=== PATIENT | male | born 1995 | race Hispanic/Latino ===

== ENCOUNTER 2019-09-11 09:37 | Emergency (ER) | payer SELFPAY ==
[2019-09-11] MEDS ORDERED: CLINDAMYCIN HCL 150 MG CAP ONE (11:07)
[2019-09-11] MEDS ORDERED: KETOROLAC TROMETHAMINE 60 MG/2 ML VIAL ONE (11:14)
== END 2019-09-11 14:20 | disposition home or self-care (01) ==
LOC: EDH 09:37
DX: H65.05 Acute serous otitis media, recurrent, left ear (principal); Z88.1 Allergy status to other antibiotic agents
CPT/HCPCS: 70480; 82948; 96372; 99285; J1885

== ENCOUNTER 2022-03-18 11:51 | Emergency (ER) | payer OTHER ==
[~2022-03-18] VITALS: Ht 190.5 cm; Wt 161.0 kg
[2022-03-18] MEDS ORDERED: NAPR500T6 PO (13:10)
[2022-03-18] MEDS ORDERED: KETOROLAC 15MG/ML VIAL (15MG/ML) IV ONE (13:30)
[2022-03-18] MEDS ORDERED: KETOROLAC 15MG/ML VIAL (15MG/ML) IM ONE (14:00)
[2022-03-18 14:09] VITALS: BP 138/80
== END 2022-03-18 16:39 | disposition home or self-care (01) ==
LOC: EDH 11:51
DX: M17.11 Unilateral primary osteoarthritis, right knee (principal); Z90.49 Acquired absence of other specified parts of digestive tract; Z88.1 Allergy status to other antibiotic agents
CPT/HCPCS: 99283; 73562; 96372; J1885

== ENCOUNTER 2025-06-16 18:25 | Emergency (ER) | payer SELFPAY ==
[~2025-06-16] VITALS: Ht 190.5 cm; Wt 145.1 kg
[~2025-06-16 18:25] MED LIST: CLIN-141 PO; DICL35CA3 PO; NAPR-1506 PO
--- NOTE | 2025-06-16 18:34 | EKG ---
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
--- NOTE | 2025-06-16 18:41 | ERN ---
ED Note History of Present Illness Stated Complaint: DIZZY, N/V/D Chief Complaint: Dizzy/Light Headed Time Seen by MD: 18:27 Time Seen by Midlevel: 18:27 Dictation: The patient is a 29-year-old male with a history of cholecystectomy who presents to the emergency department with complaints of nausea, nonbloody vomiting, nonbloody diarrhea, upper abdominal pain, dizziness onset this morning around 6:00 a.m.. Patient denies any fevers. Denies any alcohol use, denies any drug use, any falls or recent trauma. Allergies: Coded Allergies: cephalexin (Unverified Allergy, Unknown, 06/30/22) Home Meds Active Scripts Dicyclomine HCl (Bentyl) 20 Mg Tab, 1 TAB PO TID for irritable bowel symptoms for 10 Days, #30 TAB 0 Refills Prov:PATTI CHU [facility] 06/16/25 Pantoprazole Sodium (Protonix) 40 Mg Ectab, 1 TAB PO DAILY for 30 Days, #30 TAB 0 Refills Prov:PATTI CHU [facility] 06/16/25 Metformin HCl (Metformin HCl) 500 Mg Tablet, 1 TAB PO BID for 30 Days, #60 TAB 0 Refills Do not start this medication until 06/20/25 Prov:PATTI CHU [facility] 06/16/25 Ondansetron (Ondansetron Odt) 4 Mg Tab.rapdis, 4 MG PO Q6HPRN PRN for nausea, #16 TAB 0 Refills Prov:PATTI CHU [facility] 06/16/25 Diclofenac Submicronized (Diclofenac) 35 Mg Capsule, 35 MG PO TID for 10 Days, #30 CAP Prov:MARLENE SCHAEFER MD 07/01/22 Clindamycin HCl (Clindamycin HCl) 300 Mg Capsule, 1 CAP PO QID for 10 Days, #40 CAP 0 Refills Prov:MARLENE SCHAEFER MD 07/01/22 Naproxen (Naproxen) 500 Mg Tablet.dr, 500 MG PO BIDPC, #15 TAB Prov:ESME DONNELLY [facility] 03/18/22 Past Medical History Past Medical History: No Pertinent History Surgical History: Cholecystectomy Social History: Negative, Lives with family RN Note Reviewed/Agreed w/PFSH: Yes Review of System Dictation Constitutional: Negative for fever,chills, and weight loss Eyes: Negative for injury, pain,redness, and discharge ENT: Negative for injury,pain or swelling Cardiovascular: Negative for chest pain, palpitations, and edema Respiratory: Negative for shortness of breath, cough, and wheezing, Abdomen/GI: Negative for constipation positive for abdominal pain, nausea, vomiting, diarrhea. Back: Negative for injury and pain : Negative for injury, bleeding and discharge MS/Extremity: Negative for injury and deformity Skin: Negative for rash, and discoloration Neuro: Negative for headache, weakness, numbness, tingling, and seizure positive for dizziness Psych: Negative for suicide ideation, homicidal ideation, and hallucinations Initial Vital Sign VS Vital Signs Date Time Temp Pulse Resp B/P (MAP) Pulse Ox O2 Delivery O2 Flow Rate FiO2 06/16/25 18:26 98.4 133 22 122/78 98 Room Air 0 06/16/25 20:16 21 Physical Exam Dictation Vital Signs reviewed General Appearance: Alert, oriented x 3, no acute distress, well developed, nourished. Head and Face: non-traumatic. Eyes: PERRL, pink conjunctivas, eyelid no trauma, anterior chamber with arcus senilis. Ears: Pinnas intact and no signs of trauma or erythema ear canals clear and no discharge TM no erythema Nose: No discharge, no bleeding. Oropharynx: Mouth normal, tongue pink. pharynx clear,no erythema, tonsils no exudates, no abscesses noted, mucous membrane moist Neck: Supple, non-tender, no thyromegaly, no masses, no JVD, no bruits Breast:Deferred Chest:No tenderness, no crepitus, no paradoxical movement, no retractions Lungs:Clear, well-ventilated, symmetric, no rales, no wheezing, no rhonchi, no stridor, good breath sounds bilaterally Heart: Regular rate, regular rhythm, no murmur, no gallops Vascular: no peripheral edema, Abdomen: Soft, positive bowel sounds, nondistended, no guarding, Epigastric tenderness, no rebound, no masses no hepatomegaly, no splenomegaly, no Amos's sign, no hernias. Rectal: Deferred Genital: Deferred Neurological: Normal speech, motor function intact, sensory function intact , upper extremities equal in strength, lower extremities equal in strength, no facial droop, no slurred speech Musculoskeletal: Neck nontender, full range of motion, back nontender, full range of motion, Extremities: nontender, full range of motion Skin: Color pink, dry, no turgor, no rash, no lacerations, no abrasions, no contusions. Lymphatic: Deferred Results (Laboratory/Radiology) Laboratory/Radiology Laboratory Tests Test 06/16/25 18:51 06/16/25 21:37 06/16/25 22:09 White Blood Count 12.9 K/uL (4.8-10.8) H Red Blood Count 5.96 MIL/uL (4.50-6.20) Hemoglobin 17.7 g/dL (14.0-18.0) Hematocrit 49.9 % (42-54) Mean Corpuscular Volume 83.7 fL (79-99) Mean Corpuscular Hemoglobin 29.7 pg (27.0-33.0) Mean Corpuscular Hemoglobin Concent 35.5 g/dL (32.0-36.0) Red Cell Distribution Width 12.4 % (11.0-15.5) Platelet Count 306 K/uL (130-400) Mean Platelet Volume 8.9 fL (7.5-10.5) Immature Granulocyte % (Auto) 0.5 % (0-1) Neutrophils (%) (Auto) 92.1 % (40.0-77.0) H Lymphocytes (%) (Auto) 2.5 % (21.0-51.0) L Monocytes (%) (Auto) 4.6 % (3.0-13.0) Eosinophils (%) (Auto) 0.1 % (0.0-8.0) Basophils (%) (Auto) 0.2 % (0.0-5.0) Neutrophils # (Auto) 11.8 K/uL (1.8-7.7) H Lymphocytes # (Auto) 0.3 K/uL (1.0-4.8) L Monocytes # (Auto) 0.6 K/uL (0.1-1.0) Eosinophils # (Auto) 0.01 K/uL (0.00-0.70) Basophils # (Auto) 0.03 K/uL (0.00-0.20) Absolute Immature Granulocyte (auto 0.07 K/uL (0-1) Nucleated Red Blood Cells 0.0 % (0.0-0.19) White Cell Morphology Comment See comments Sodium Level 135 mmol/L (136-145) L Potassium Level 4.4 mmol/L (3.5-5.1) Chloride Level 95 mmol/L (101-111) L Carbon Dioxide Level 25 mmol/L (21-32) Blood Urea Nitrogen 19 mg/dL (7-18) H Creatinine 1.2 mg/dL (0.5-1.3) Glomerular Filtration Rate Calc 83 mL/min (>90) Random Glucose 323 mg/dL (70-105) H Lactic Acid Level 4.1 mmol/L (0.8-2.5) H 2.9 mmol/L (0.8-2.5) H Total Calcium 8.9 mg/dL (8.5-10.1) Magnesium Level 1.50 mg/dL (1.80-2.40) L Total Bilirubin 0.8 mg/dL (0.2-1.0) Direct Bilirubin 0.1 mg/dL (0.0-0.3) Aspartate Amino Transf (AST/SGOT) 20 U/L (10-37) Alanine Aminotransferase (ALT/SGPT) 53 U/L (12-78) Alkaline Phosphatase 80 U/L (50-136) Total Creatine Kinase 57 U/L (21-232) Troponin I High Sensitivity 4 ng/L (4-75) Total Protein 8.6 g/dL (6.0-8.3) H Albumin 4.5 g/dL (3.5-5.0) Lipase 26 U/L (16-77) Urine Color LIGHT-YELLOW (YELLOW) Urine Appearance CLEAR (CLEAR) Urine pH 6.0 (5.0-8.0) Urine Specific [place] OVER (1.001-1.031) Urine Protein 50 mg/dL (NEGATIVE) H Urine Glucose (UA) >=1000 mg/dL (NEGATIVE) H Urine Ketones NEGATIVE mg/dL (NEGATIVE) Urine Occult Blood NEGATIVE (NEGATIVE) Urine Nitrate NEGATIVE (NEGATIVE) Urine Bilirubin NEGATIVE mg/dL (NEGATIVE) Urine Urobilinogen 0.2 mg/dL (0.2-1.0) Urine Leukocyte Esterase NEGATIVE Mani/uL Urine RBC 2-5 /HPF (0-1) H Urine WBC 2-5 /HPF (0-1) H Urine Squamous Epithelial Cells FEW /HPF (0-2) Urine Bacteria None /HPF (None Seen) Urine Opiates Screen NEGATIVE (NEGATIVE) Urine Barbiturates Screen NEGATIVE (NEGATIVE) Urine Phencyclidine Screen NEGATIVE (NEGATIVE) Urine Amphetamines Screen NEGATIVE (NEGATIVE) Urine Benzodiazepines Screen NEGATIVE (NEGATIVE) Urine Cocaine Screen NEGATIVE (NEGATIVE) Urine Marijuana (THC) Screen NEGATIVE (NEGATIVE) REASON: Abdominal Pain ORDERING PHYSICIAN: PATTI CHU FOOD SPECIALIST PROCEDURE: ABD PEL W - CT ABDOMEN/PELVIS W/CONTRAST EXAM: CT Abdomen and Pelvis with IV contrast CLINICAL HISTORY: Patient presents with abdominal pain. TECHNIQUE: Axial computed tomography images of the abdomen and pelvis with intravenous contrast. CONTRAST: Administered intravenously. COMPARISON: None provided. FINDINGS: LUNG BASES: The lung bases are clear. No pleural effusions. LIVER: The liver is enlarged measuring 25.5 cm in craniocaudal dimension with diffuse hepatic steatosis. GALLBLADDER AND BILE DUCTS: The gallbladder is surgically absent. No biliary ductal dilatation. PANCREAS: Unremarkable. SPLEEN: Unremarkable. ADRENAL GLANDS: Unremarkable. KIDNEYS, URETERS, AND BLADDER: The kidneys are within normal limits. No hydronephrosis or hydroureter. The urinary bladder is incompletely distended, limiting evaluation for possible wall thickening. In the appropriate clinical setting, mild cystitis cannot be excluded. STOMACH AND BOWEL: Nondilated fluid-filled small and large bowel loops without any zone of transition; this could be a nonspecific finding, or may be present in the clinical setting of acute enterocolitis. No obstruction. APPENDIX: No evidence of acute appendicitis. PERITONEUM: No free fluid or free air. LYMPH NODES: No lymphadenopathy. REPRODUCTIVE: Unremarkable as visualized. VASCULATURE: No abdominal aortic aneurysm. BONES: No acute or aggressive osseous abnormality. IMPRESSION: Nondilated fluid-filled small and large bowel loops without any zone of transition; this could be a nonspecific finding, or may be present in the clinical setting of acute enterocolitis. No obstruction. Hepatomegaly with diffuse hepatic steatosis. Status post cholecystectomy. Urinary bladder incompletely distended; in the appropriate clinical setting, mild cystitis cannot be excluded. /[place] REASON: dizzy ORDERING PHYSICIAN: PATTI CHU FOOD SPECIALIST PROCEDURE: CXR1VW - CHEST 1VW EXAM: CR Chest, 1 View. CLINICAL HISTORY: dizzy COMPARISON: None provided. FINDINGS: LUNGS: There is no mass, infiltrate, or acute pulmonary abnormality. PLEURAL SPACES: No evidence of pleural effusion or pneumothorax. MEDIASTINUM: The cardiomediastinal silhouette is within normal limits. BONES: No aggressive appearing osseous lesion seen. IMPRESSION: No acute cardiopulmonary pathology is evident. /[facility] Reviewed?: Yes EKG: (+) rhythm (Sinus tachycardia) EKG Comment: Date:06/16/2025 Time:1826 Ventricular rate:133 CO interval:128 QRS duration: 83 QT/QTc:311/463 EKG interpretation: Sinus tachycardia Reviewed by ED Attending no STEMI ED Course ED Course Orders Procedure Category Date Status Time 12 Lead Ekg Tracing- EKG 06/16/25 Complete Technical 18:29 Cbc With Differential LAB 06/16/25 Complete 18:33 Troponin I High LAB 06/16/25 Complete Sensitivity 18:33 Urinalysis Profile LAB 06/16/25 Complete 18:33 Ondansetron 4mg Inj PHA 06/16/25 Complete (Zofran 4mg Inj) 19:00 Pantoprazole 40mg Inj PHA 06/16/25 Complete (Protonix 40mg Inj 19:00 Creatine Kinase, Total LAB 06/16/25 Complete 18:33 Chest 1vw RAD 06/16/25 Resulted 18:33 Lipase LAB 06/16/25 Complete 18:33 Basic Metabolic Panel LAB 06/16/25 Complete 18:33 Hepatic Function Panel LAB 06/16/25 Complete 18:33 Drug Screen Urine LAB 06/16/25 Complete 18:33 Blood Cult DWAYNE 06/16/25 In Process 18:33 0.9%Nacl 1000ml (Ns PHA 06/16/25 Complete 1000ml) 19:00 Lactic Acid LAB 06/16/25 Complete 18:33 Magnesium LAB 06/16/25 Complete 18:38 Magnesium Oxide PHA 06/16/25 Complete (Mag-Ox) 19:30 Ct Abdomen/Pelvis CT 06/16/25 Resulted W/Contrast 19:26 Iohexol (Omnipaque) PHA 06/16/25 Complete 20:07 Lactic Acid (Removed) LAB 06/16/25 Complete 22:03 Dicyclomine Hcl PHA 06/16/25 Complete (Bentyl 20mg Inj) 22:30 Current Medications Medications (Trade) Dose Ordered Sig/[place] Route PRN Reason Start Time Stop Time Status Last Admin Dose Admin Dicyclomine HCl (Bentyl 20mg Inj) 20 mg ONCE ONCE IM 06/16/25 22:30 06/16/25 22:31 DC 06/16/25 22:29 Iohexol (Omnipaque) 75 ml STK-MED ONCE IV 06/16/25 20:07 06/16/25 20:07 DC Magnesium Oxide (Mag-Ox) 400 mg ONCE ONCE PO 06/16/25 19:30 06/16/25 19:31 DC 06/16/25 20:05 Ondansetron HCl (zoFRAN 4MG INJ) 4 mg ONCE ONCE IVP 06/16/25 19:00 06/16/25 19:01 DC 06/16/25 20:05 Pantoprazole Sodium (PROTonix 40MG INJ) 40 mg ONCE ONCE IVP 06/16/25 19:00 06/16/25 19:01 DC 06/16/25 20:02 Sodium Chloride 2,535 ml @ 845 mls/hr ONCE ONCE IV 06/16/25 19:00 06/16/25 21:59 DC 06/16/25 20:05 Vital Signs Date Time Temp Pulse Resp B/P (MAP) Pulse Ox O2 Delivery O2 Flow Rate FiO2 06/16/25 22:57 98.8 106 16 113/51 98 Room Air* 0 21 06/16/25 22:23 98.8 101 18 116/67 98 Room Air* 0 21 06/16/25 20:16 98.8 124 18 117/68 96 Room Air* 0 21 06/16/25 18:26 98.4 133 22 122/78 98 Room Air 0 Medical Decision Making MDM The patient is a 29-year-old male with a history of cholecystectomy who presents to the emergency department with complaints of nausea, nonbloody vomiting, nonbloody diarrhea, upper abdominal pain, dizziness onset this morning around 6:00 a.m.. Patient denies any fevers. Denies any alcohol use, denies any drug use, any falls or recent trauma. CBC showed mild leukocytosis, no anemia, chemistry showed hyperglycemia, negative troponin, hypomagnesemia,negative lipase elevated lactic acid, trending down after fluids. urinalysis showed no leukocyte esterase no nitrates. Ct showed entrocolitis, chest xray unremarkable. patients hear rate improved after fluids. On physical exam patient continues neurologically intact, non toxic appearance, stable vital signs. Patient will be discharge to follow up with PCP>. Differential diagnosis: Gastroenteritis, gastritis, sepsis, dehydration, uti, electrolyte imbalance Need for hospitalization: Patient does not meet criteria for hospitalization. There are no social concerns with this patient. DX & DISP Disposition: Discharge Departure Impression: Primary Impression: Gastroenteritis Additional Impressions: Hyperglycemia, Dehydration, Nausea and vomiting Condition: Stable Scripts Dicyclomine HCl (Bentyl) 20 Mg Tab 1 TAB PO TID for irritable bowel symptoms for 10 Days, #30 TAB 0 Refills Prov: PATTI CHU [facility] 06/16/25 Pantoprazole Sodium (Protonix) 40 Mg Ectab 1 TAB PO DAILY for 30 Days, #30 TAB 0 Refills Prov: PATTI CHU FOOD SPECIALIST 06/16/25 Metformin HCl (Metformin HCl) 500 Mg Tablet 1 TAB PO BID for 30 Days, #60 TAB 0 Refills Do not start this medication until 06/20/25 Prov: PATTI CHU FOOD SPECIALIST 06/16/25 Ondansetron (Ondansetron Odt) 4 Mg Tab.rapdis 4 MG PO Q6HPRN PRN for nausea, #16 TAB 0 Refills Prov: PATTI CHUP 06/16/25 Additional Instructions: You had some dehydration but we gave you fluids in the ER. Do however continue hydrating at home. Your labs also showed you have diabetes. You will be presc ribe Metformin which is a diabetes medication to help lower your blood sugar. You cannot however start metformin until the because you received contrast in the ER.Your magnesium, an electrolyte was also low but we replaced it. Please follow up with your PCP in 1-2 days. If anything worsens please return to ER. FOLLOW-UP WITH PRIMARY CARE PROVIDER IN 1 TO 2 DAYS. TAKE MEDICATIONS DIRECTED HERE IN THE EMERGENCY ROOM. OKAY TO CONTINUE HOME MEDICATIONS UNLESS OTHERWISE DISCUSSED DURING YOUR VISIT IN THE EMERGENCY ROOM TODAY. RETURN TO YOUR NEAREST EMERGENCY ROOM IF SYMPTOMS WORSEN OR IF THERE IS NO IMPROVEMENT. CALL 911 IF YOU NEED IMMEDIATE ASSISTANCE. TAKE TYLENOL [id number] NEEDED AND IF NO CONTRAINDICATIONS ARE PRESENT. INCREASE ORAL HYDRATION. A WOUND CULTURE OR URINE CULTURE WAS ORDERED HERE IN THE EMERGENCY ROOM DEPARTMENT PLEASE FOLLOW-UP WITH PRIMARY CARE PROVIDER AND ADVISE THEM TO GET REPEAT PORTS FROM OUR FACILITY. IF YOU HAD ANY MIGUELITO WRAP/SPLINTS THAT WERE APPLIED HERE, PLEASE DO NOT REMOVE THEM UNTIL YOU SEE YOUR PRIMARY CARE OR SPECIALTY. Referrals: SELF,REFERRAL (PCP) Time of Disposition: 22:51 I have reviewed the case, and I agree with, Diagnosis and Plan I performed a substantive portion of the visit. I have reviewed and personally made and approve the management plan that is documented in the notes by myself with REYMUNDO/resident. I acknowledged full responsibility for the patient's management plan. PATTI CHU Jun 16, 2025 18:41 LUIS MANUEL YANCEY DO Jun 17, 2025 01:02
[2025-06-16 18:59] LABS: IMMATURE GRANULOCYTE ABSOLUTE 0.07 K/uL (0-1); NUCLEATED RED BLOOD CELLS 0.0 % (0.0-0.19); PLATELET COUNT (AUTO) 306 K/uL (130-400); RED BLOOD CELL COUNT(AUTO) 5.96 MIL/uL (4.50-6.20); RED CELL DISTRIBUTION WIDTH 12.4 % (11.0-15.5); WHITE BLOOD COUNT (AUTO) 12.9 K/uL (4.8-10.8)
[2025-06-16 19:14] LABS: CREATININE 1.2 mg/dL (0.5-1.3); GLOMERULAR FILTR. RATE CALC 83.0 mL/min (>90); GLUCOSE,RANDOM 323.0 mg/dL (70-105); SODIUM SERUM 135.0 mmol/L (136-145); UREA NITROGEN, BLOOD 19.0 mg/dL (7-18)
[2025-06-16 19:18] LABS: ASPARTATE AMINOTRANSFERASE 20.0 U/L (10-37); CREATINE KINASE, TOTAL 57.0 U/L (21-232); TOTAL PROTEIN, SERUM 8.6 g/dL (6.0-8.3)
[2025-06-16] MEDS: [UNRECOGNIZED DRUG - OTHER] IV ONE (20:05)
[2025-06-16] MEDS: MAGNESIUM OXIDE 400 MG TABLET PO ONE (20:05)
[2025-06-16] MEDS ORDERED: IOHEXOL-350 75 ML VIAL IV ONE (20:07)
--- NOTE | 2025-06-16 20:10 | HMCIMG ---
EXAM: CR Chest, 1 View. CLINICAL HISTORY: dizzy COMPARISON: None provided. FINDINGS: LUNGS: There is no mass, infiltrate, or acute pulmonary abnormality. PLEURAL SPACES: No evidence of pleural effusion or pneumothorax. MEDIASTINUM: The cardiomediastinal silhouette is within normal limits. BONES: No aggressive appearing osseous lesion seen. IMPRESSION: No acute cardiopulmonary pathology is evident. /[place]
--- NOTE | 2025-06-16 21:48 | HMCIMG ---
EXAM: CT Abdomen and Pelvis with IV contrast CLINICAL HISTORY: Patient presents with abdominal pain. TECHNIQUE: Axial computed tomography images of the abdomen and pelvis with intravenous contrast. CONTRAST: Administered intravenously. COMPARISON: None provided. FINDINGS: LUNG BASES: The lung bases are clear. No pleural effusions. LIVER: The liver is enlarged measuring 25.5 cm in craniocaudal dimension with diffuse hepatic steatosis. GALLBLADDER AND BILE DUCTS: The gallbladder is surgically absent. No biliary ductal dilatation. PANCREAS: Unremarkable. SPLEEN: Unremarkable. ADRENAL GLANDS: Unremarkable. KIDNEYS, URETERS, AND BLADDER: The kidneys are within normal limits. No hydronephrosis or hydroureter. The urinary bladder is incompletely distended, limiting evaluation for possible wall thickening. In the appropriate clinical setting, mild cystitis cannot be excluded. STOMACH AND BOWEL: Nondilated fluid-filled small and large bowel loops without any zone of transition; this could be a nonspecific finding, or may be present in the clinical setting of acute enterocolitis. No obstruction. APPENDIX: No evidence of acute appendicitis. PERITONEUM: No free fluid or free air. LYMPH NODES: No lymphadenopathy. REPRODUCTIVE: Unremarkable as visualized. VASCULATURE: No abdominal aortic aneurysm. BONES: No acute or aggressive osseous abnormality. IMPRESSION: Nondilated fluid-filled small and large bowel loops without any zone of transition; this could be a nonspecific finding, or may be present in the clinical setting of acute enterocolitis. No obstruction. Hepatomegaly with diffuse hepatic steatosis. Status post cholecystectomy. Urinary bladder incompletely distended; in the appropriate clinical setting, mild cystitis cannot be excluded. /[place]
[2025-06-16 21:58] LABS: AMPHET/METH SCREEN,URINE NEGATIVE (NEGATIVE); BARBITURATE SCREEN, URINE NEGATIVE (NEGATIVE); CANNABINOID SCREEN,URINE NEGATIVE (NEGATIVE); COCAINE SCREEN,URINE NEGATIVE (NEGATIVE)
[2025-06-16 22:00] LABS: APPEARANCE,URINE CLEAR (CLEAR); GLUCOSE, URINE (UA) >=1000 mg/dL (NEGATIVE); LEUKOCYTE ESTERASE ,URINE NEGATIVE Leu/uL (NEGATIVE); NITRATE,URINE NEGATIVE (NEGATIVE); OCCULT BLOOD,URINE NEGATIVE (NEGATIVE)
[2025-06-16 22:03] LABS: ADD UA MICROSCOPIC YES
[2025-06-16 22:09] LABS: SQUAMOUS EPITHELIAL CELL,UR FEW /HPF (0-2)
[2025-06-16] MEDS: DICYCLOMINE 20MG (10MG/ML) AMP IM ONE (22:29)
[2025-06-16] MEDS ORDERED: DICY20TA2 PO (22:49)
[2025-06-16] MEDS ORDERED: ONDA-243 PO (22:49)
[2025-06-16] MEDS ORDERED: PANT40TA55 PO (22:49)
[2025-06-16] MEDS ORDERED: METF-444 PO (22:49)
[2025-06-16 22:57] VITALS: BP 113/51; PULSE 106; RESP 16; TEMP 98.8; O2SAT 98
== END 2025-06-16 23:24 | disposition home or self-care (01) ==
LOC: EDH 18:25
DX: K52.9 Noninfective gastroenteritis and colitis, unspecified (principal); E86.0 Dehydration; R11.2 Nausea with vomiting, unspecified; R42 Dizziness and giddiness; Z88.1 Allergy status to other antibiotic agents; Z79.899 Other long term (current) drug therapy; Z79.84 Long term (current) use of oral hypoglycemic drugs; Z90.49 Acquired absence of other specified parts of digestive tract
CPT/HCPCS: 99285; 74177; 96361; 96374; 71045; 96375; 82550; 80076; 83735; 84484; 80048; 80305; 83690; 85025; 87040 ×2; 83605 ×2; 81001; 36415; 96372; 93005; J7030; J2405; J2470; J0500; Q9967